=== PATIENT | male | born 1975 | race Caucasian/White ===

== ENCOUNTER 2017-01-03 00:22 | Emergency (ER) | payer SELFPAY ==
[~2017-01-03] VITALS: Ht 182.9 cm; Wt 97.9 kg
[~2017-01-03 00:22] MED LIST: HYDR-5688 PO; PRLSR20 PO
[2017-01-03 00:33] VITALS: TEMP 36.6; Ht 182.9 cm; Wt 97.9 kg
[2017-01-03] MEDS ORDERED: METHYLPREDNISOLONE 125 MG VIAL IV STA (01:05)
[2017-01-03] MEDS ORDERED: KETOROLAC TROMETHAMINE 30 MG/ML VIAL IV STA (01:05)
[2017-01-03 01:15] LABS: BASO % 0.4 %; BASO ABS # 0.03 K/uL (0-0.2); COMPLETE YES; EOS % 4.4 %; IG% 0.3 %; LYMPH % 26.5 %; LYMPH ABS # 2.05 K/uL (1.2-3.4); MEAN CELL VOLUME 96.2 fL (80-100); MEAN CORPUSCULAR HEMOGLOBIN 34.5 pg (25-34); MEAN CORPUSCULAR HGB CONC 35.8 g/dl (32-36); MEAN PLATELET VOLUME 10.6 fL (7.4-10.4); MONO % 5.8 %; NEUT % 62.6 %; PLATELET COUNT 194 K/uL (130-400); RED BLOOD COUNT 4.47 M/uL (4.7-6.1); WHITE BLOOD COUNT 7.75 K/uL (4.8-10.8)
[2017-01-03] MEDS ORDERED: SODIUM CHLORIDE 0.9% 1000ML 1,000 ML IV ONE (01:15)
[2017-01-03 01:23] LABS: BUN/CREATININE RATIO 11.5 (10-20); POTASSIUM 3.8 mmol/L (3.5-5.1)
[2017-01-03 01:26] LABS: ALB/GLOB RATIO 1.2 (0.9-2)
[2017-01-03] MEDS ORDERED: DICL75TA2 PO (02:31)
[2017-01-03] MEDS ORDERED: CYCL10TA6 PO (02:31)
[2017-01-03] MEDS ORDERED: METH4PAK PO (02:31)
[2017-01-03 02:33] VITALS: BP 124/72; PULSE 96; O2SAT 96
--- NOTE | 2017-01-03 06:12 | EMERGENCY ROOM VISIT NOTE ---
History First contact with patient: 00:54 Chief Complaint: SHOULDER PAIN Stated Complaint: SEVERE PAIN LT SHOULDER TO POINT OF TEARS,ANXIETY History of Present Illness The patient is a 41 year old male who presents to the Emergency Room with complaints of severe left shoulder pain worsening over the past few months. The patient does not recall a distinct injury or trauma to explain his symptoms. He states that his pain is worse than normal tonight and nonradiating. She was not able to sleep tonight, prompting him to come to the ER. 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 The patient states range of motion worsens his discomfort. He does not have numbness or paresthesias. No chest pain or shortness of breath. Additionally, the patient reports a history of anxiety and that is exacerbated with his left shoulder pain. He is not taking anything [id number] for either his shoulder pain or his anxiety. He rates his discomfort a 9/10. Review of Systems More than 10 systems were reviewed and otherwise negative with the exception of history of present illness. Past Medical/Surgical History Medical Problems: (1) No Known Active Medical Problems Family History Cancer Diabetes mellitus Heart disease Social History Smoking Status: Current Every Day Smoker Alcohol Use: none Drug Use: heroin, other Marital Status: single Occupation Status: employed Current/Historical Medications Scheduled Cyclobenzaprine Hcl (Flexeril), 10 MG PO TID Diclofenac Sodium (Voltaren), 75 MG PO BID Methylprednisolone (Medrol Dosepak), 1 PKT PO DIRECTED Scheduled PRN Omeprazole (Prilosec), 20 MG PO DAILY PRN for Heartburn Allergies Coded Allergies: Penicillins (Verified Allergy, Unknown, 01/03/17) Physical Exam Vital Signs Date Time Temp Pulse Resp B/P Pulse Ox O2 Delivery O2 Flow Rate FiO2 01/03/17 02:33 96 20 124/72 96 Room Air 01/03/17 00:33 36.6 95 24 134/77 96 Room Air Pain Rating (0-10): 8.0 Physical Exam VITALS: Vitals are noted on the nurse's note and reviewed by myself. Vital signs stable. GENERAL: Well-developed, well-nourished, white male, who is mildly anxious HEAD: Normocephalic atraumatic. NECK: Supple without nuchal rigidity. No lymphadenopathy. No thyromegaly. Cervical spine is nontender. HEART: Regular rate and rhythm without murmurs gallops or rubs. LUNGS: Clear to auscultation bilaterally without wheezes, rales or rhonchi. No retractions or accessory muscle use. MUSCULOSKELETAL: No muscle atrophy, erythema, or edema noted. Tenderness is appreciated over the superior and inferior left scapula. No gross deformity noted. No clavicular tenderness. The patient is able to abduct at the left shoulder. Patient refuses elevation of his hand above his head. Neurovascular status is intact distal extremity. NEURO: Patient was alert and oriented to person place and time. CN II through XII grossly intact. Deep tendon reflexes 2+ throughout. Medical Decision & Procedures Laboratory Results 01/03/17 00:49 Red Blood Count 4.47, Mean Corpuscular Volume 96.2, Mean Corpuscular Hemoglobin 34.5, Mean Corpuscular Hemoglobin Concent 35.8, Mean Platelet Volume 10.6, Neutrophils (%) (Auto) 62.6, Lymphocytes (%) (Auto) 26.5, Monocytes (%) (Auto) 5.8, Eosinophils (%) (Auto) 4.4, Basophils (%) (Auto) 0.4, Neutrophils # (Auto) 4.86, Lymphocytes # (Auto) 2.05, Monocytes # (Auto) 0.45, Eosinophils # (Auto) 0.34, Basophils # (Auto) 0.03 01/03/17 00:49 Test 01/03/17 00:49 01/03/17 01:17 White Blood Count 7.75 K/uL (4.8-10.8) Red Blood Count 4.47 M/uL (4.7-6.1) Hemoglobin 15.4 g/dL (14.0-18.0) Hematocrit 43.0 % (42-52) Mean Corpuscular Volume 96.2 fL (80-100) Mean Corpuscular Hemoglobin 34.5 pg (25-34) Mean Corpuscular Hemoglobin Concent 35.8 g/dl (32-36) Platelet Count 194 K/uL (130-400) Mean Platelet Volume 10.6 fL (7.4-10.4) Neutrophils (%) (Auto) 62.6 % Lymphocytes (%) (Auto) 26.5 % Monocytes (%) (Auto) 5.8 % Eosinophils (%) (Auto) 4.4 % Basophils (%) (Auto) 0.4 % Neutrophils # (Auto) 4.86 K/uL (1.4-6.5) Lymphocytes # (Auto) 2.05 K/uL (1.2-3.4) Monocytes # (Auto) 0.45 K/uL (0.11-0.59) Eosinophils # (Auto) 0.34 K/uL (0-0.5) Basophils # (Auto) 0.03 K/uL (0-0.2) RDW Standard Deviation 45.3 fL (36.4-46.3) RDW Coefficient of Variation 13.1 % (11.5-14.5) Immature Granulocyte % (Auto) 0.3 % Immature Granulocyte # (Auto) 0.02 K/uL (0.00-0.02) Anion Gap 5.0 mmol/L (3-11) Est Creatinine Clear Calc Drug Dose 115.5 ml/min Estimated GFR () 106.4 Estimated GFR (Non- 91.8 BUN/Creatinine Ratio 11.5 (10-20) Calcium Level 9.0 mg/dl (8.5-10.1) Total Bilirubin 0.5 mg/dl (0.2-1) Aspartate Amino Transf (AST/SGOT) 16 U/L (15-37) Alanine Aminotransferase (ALT/SGPT) 34 U/L (12-78) Alkaline Phosphatase 76 U/L (45-117) Total Protein 7.2 gm/dl (6.4-8.2) Albumin 3.9 gm/dl (3.4-5.0) Globulin 3.3 gm/dl (2.5-4.0) Albumin/Globulin Ratio 1.2 (0.9-2) Lipase 421 U/L (73-393) Ethyl Alcohol mg/dL < 3.0 mg/dl (0-3) Medications Administered Medications (Trade) Dose Ordered Sig/Donavan Route Start Time Stop Time Status Last Admin Dose Admin Ketorolac Tromethamine (Toradol Inj) 30 mg NOW STAT IV 01/03/17 01:05 01/03/17 01:07 DC 01/03/17 01:27 30 MG Methylprednisolone Sodium Succinate 125 mg 125 mg NOW STAT IV 01/03/17 01:05 01/03/17 01:07 DC 01/03/17 01:27 125 MG Sodium Chloride (Nss 1000ml) 1,000 ml @ 999 mls/hr Q1H1M ONCE IV 01/03/17 01:15 01/03/17 02:15 DC 01/03/17 01:27 999 MLS/HR ED Course Physical exam and history were performed. Nursing notes and EMR were reviewed. Patient appears to have left shoulder pain worsening over the past several months. The patient does not recall a distinct injury or trauma. IV access was established and labs were obtained. EKG was normal sinus rhythm without ST elevation. X-ray was performed. The patient was medicated as above. The patient's blood work does not show significantly elevated white blood cell count, anemia, bandemia, or significant electrolyte imbalance. Troponin 1 is negative. Lipase and transaminases are nondiagnostic. X-ray does not show significant acute finding per my interpretation with radiology report pending. Overall the patient appears stable for discharge home. His symptoms best correlate with a musculoskeletal etiology. He has reproducible tenderness on palpation and with range of motion. I do not suspect cardiac or pulmonary source. The patient will be placed in an arm sling and given a course of diclofenac, Flexeril, and steroids. He'll be given information to follow with orthopedics, and was asked to contact them in the morning to arrange appropriate care. The patient did request medication for his anxiety, however he is not chronically on anxiety medication. I do not feel comfortable initiating anxiety medication from the emergency department. The patient will need to discuss this with his primary care physician. The patient was otherwise invited back to the ER with any new, worsening, or concerning symptoms The chart was completed utilizing [employer] Voice Recognition Software. Grammatical errors, random word insertions, pronoun errors, and incomplete sentences are an occasional consequence of this system due to software limitations, ambient noise, and hardware issues. Any formal questions or concerns about the content, text, or information contained within the body of this dictation should be directly addressed to the provider for clarification. . Medical Decision Differential diagnosis includes, but is not limited to: Sprain, strain, fracture , dislocation, subluxation, contusion, or cardiopulmonary event, rotator cuff injury, and others Impression Primary Impression: Left shoulder pain Departure Information Dispostion Home / Self-Care Condition GOOD Prescriptions Methylprednisolone (MEDROL DOSEPAK) 4 Mg Scott 1 PKT PO DIRECTED, #1 PKT Prov: Bertin James PA-C 01/03/17 Cyclobenzaprine Hcl (FLEXERIL) 10 Mg Tab 10 MG PO TID for 7 Days, #21 TAB Prov: Bertin James PA-C 01/03/17 Diclofenac Sodium (VOLTAREN) 75 Mg Tab 75 MG PO BID for 10 Days, #20 TAB Prov: Bertin James PA-C 01/03/17 Referrals Catracho Chau M.D. Forms HOME CARE DOCUMENTATION FORM, IMPORTANT VISIT INFORMATION Patient Instructions My [facility] Additional Instructions You were seen and evaluated today on an emergency basis only. This is not a substitute for, or an effort to provide, complete comprehensive medical care. It is not possible to recognize and treat all injuries or illnesses in a single emergency department visit. For this reason it is recommended that you followup with [facility] , Dr. Chau's office, this week for ongoing care and evaluation. Call in the morning to make your appointment. Take diclofenac 75 mg twice daily as needed for pain. Take this medication with food. Do not take additional medications such as Advil or Aleve while taking this medication. You may take 1000 mg Tylenol every 8 hours. Take a Medrol Dosepak as prescribed. Flexeril 1 tablet up to 3 times a day as needed for muscle spasms. No driving, working, or alcohol use with Flexeril. Wear your arm sling for comfort. You are welcome to return to the emergency department anytime with new, worsening, or concerning symptoms.
--- NOTE | 2017-01-03 07:26 | DIAGNOSTIC IMAGING REPORT ---
LEFT SHOULDER 3 VIEWS CLINICAL HISTORY: Left shoulder pain. No reported history of trauma. FINDINGS: 3 views of left shoulder are correlated with left humeral radiographs dated 06/25/2016. The skeletal structures are well mineralized. No fracture or dislocation is seen. Minimal productive degenerative change is identified at the acromioclavicular joint. Mild arthritic change and sclerosis is present in the greater tuberosity of the humeral head. The glenohumeral articulation is preserved. The overlying soft tissues are within normal limits. The imaged left upper lobe lung parenchyma appears clear. IMPRESSION: No acute bony abnormality is seen in the left shoulder. Electronically signed by: Timothy Hamm M.D. 01/03/2017 7:24 AM Dictated Date/Time: 01/03/2017 7:23 AM
== END 2017-01-03 02:46 | disposition home or self-care (01) ==
LOC: C.EDB 00:24 → C.EDA 02:46
DX: M25.512 Pain in left shoulder (principal); F17.200 Nicotine dependence, unspecified, uncomplicated

== ENCOUNTER 2017-10-04 20:38 | Emergency (ER) | payer OTHER ==
[~2017-10-04] VITALS: Ht 180.3 cm; Wt 96.4 kg
[~2017-10-04 20:38] MED LIST changes: -HYDR-5688 PO
[2017-10-04 20:46] VITALS: TEMP 36.7; Ht 180.3 cm; Wt 96.4 kg
[2017-10-04] MEDS ORDERED: PROPARACAINE HCL 0.5% OP SOLN 15 ML BTL OP STA (20:51)
[2017-10-04] MEDS ORDERED: OXYCODONE/ACETAMINOPHEN 5-325 TAB PO STA (21:11)
[2017-10-04] MEDS ORDERED: IBUPROFEN 600 MG TAB PO STA (21:11)
[2017-10-04] MEDS ORDERED: SULF800T23 PO (21:12)
[2017-10-04] MEDS ORDERED: CLIN150C PO (21:12)
[2017-10-04] MEDS ORDERED: IBUP-1428 PO (21:12)
[2017-10-04] MEDS ORDERED: IBUP-1450 PO (21:12)
[2017-10-04] MEDS ORDERED: CIPROFLOXACIN HCL 0.3% OP SOLN 2.5 ML BTL OP ONE (21:15)
[2017-10-04] MEDS ORDERED: OXYCODONE IR HOME PACK PO ONE (21:15)
[2017-10-04 21:26] VITALS: BP 128/71; PULSE 87; O2SAT 96
--- NOTE | 2017-10-05 15:52 | EMERGENCY ROOM VISIT NOTE ---
ED Visit Note First contact with patient: 20:51 CHIEF COMPLAINT: Eye pain HISTORY OF PRESENT ILLNESS: This 42-year-old incarcerated male patient presents to the emergency department complaining of pain in the right eye after being poked in the eye while playing basketball just prior to arrival. There has been a constant moderate pain and irritation, redness and tearing in the eye. There is a mild blurring of vision at times and light bothers the eye. The vision has been decreased over all. The patient does not wear contacts. The patient rates the pain as sharp and 8/10. The patient has not had previous injuries to this eye. Tetanus shot is reportedly up to date. REVIEW OF SYSTEMS: A 6 system review of systems was completed with positives and pertinent negatives listed in the HPI. ALLERGIES: Penicillin MEDICATIONS: See EMR PMH: See EMR SOCIAL HISTORY: Incarcerated PHYSICAL EXAM: Vital Signs: Reviewed Nurse's notes, vital signs stable. Visual acuity was unable to be performed. GENERAL: This is a male, in no acute distress, but who is uncomfortable from the eye problem. Well-developed well- nourished. EYES: The pupils are equal round and reactive to light and accommodation. EOMs are full and without tenderness. There is discharge of clear tears from the right eye which is injected. There is no foreign body visible under the eyelid even after lid eversion. Funduscopic exam reveals no hemorrhages, papilledema, or other abnormalities. No foreign body was seen embedded in the cornea under slit lamp exam. The cornea was clear and no hyphema was seen. Fluorescein uptake was observed with ultraviolet light significant for a corneal abrasion at 5:00. EMERGENCY DEPARTMENT COURSE: Physical exam and history were performed. Nursing notes and EMR were reviewed. The patient appears to have suffered a contusion/abrasion to his right eye while playing basketball today. He does have an abrasion on exam. His tonometry readings were normal. The patient was given pain medication here in the department. He was started on Ciloxan eyedrops. He is to follow with the [facility] for further care and management. He was otherwise invited back to the ER with any new, worsening, or concerning symptoms. Problem List Medical Problems: (1) No Known Active Medical Problems Status: Chronic Current/Historical Medications Scheduled Clindamycin Hcl (Cleocin), 150 MG PO TID Ibuprofen (Motrin), 800 MG PO BID Sulfa/Trimethoprim (Bactrim Ds 800MG/160MG), 1 TAB PO BID Scheduled PRN Ibuprofen (Motrin), 600 MG PO TID PRN for Pain Allergies Coded Allergies: Penicillins (Verified Allergy, Unknown, 10/04/17) Vital Signs Date Time Temp Pulse Resp B/P (MAP) Pulse Ox O2 Delivery O2 Flow Rate FiO2 10/04/17 21:26 87 20 128/71 96 10/04/17 20:46 36.7 60 18 119/76 95 Room Air Medications Administered Medications (Trade) Dose Ordered Sig/Donavan Route Start Time Stop Time Status Last Admin Dose Admin Oxycodone/ Acetaminophen (Percocet 5-325mg Tab) 2 tab NOW STAT PO 10/04/17 21:11 10/04/17 21:13 DC 10/04/17 21:22 2 TAB Ibuprofen (Motrin Tab) 600 mg NOW STAT PO 10/04/17 21:11 10/04/17 21:13 DC 10/04/17 21:21 600 MG Oxycodone HCl (Roxicodone Immediate Rel 5MG Home Pack) 1 homepack UD ONCE PO 10/04/17 21:15 10/04/17 21:16 DC 10/04/17 21:21 1 HOMEPACK Ciprofloxacin HCl (Ciprofloxacin 0.3% Op Soln) 2 drops NOW ONCE OP 10/04/17 21:15 10/04/17 21:16 DC 10/04/17 21:21 2 DROPS Departure Information Impression Primary Impression: Injury of conjunctiva and corneal abrasion of right eye withou... Dispostion Home / Self-Care Condition FAIR Forms HOME CARE DOCUMENTATION FORM, IMPORTANT VISIT INFORMATION Patient Instructions My [facility] Additional Instructions You were seen and evaluated today on an emergency basis only. This is not a substitute for, or an effort to provide, complete comprehensive medical care. It is not possible to recognize and treat all injuries or illnesses in a single emergency department visit. For this reason it is recommended that you followup with the [facility] tomorrow morning for recheck of your eye. For baseline pain relief you may alternate ibuprofen and acetaminophen every 4 hours for pain control. Take 600 mg ibuprofen (Advil) and then 4 hours later take 1000 mg acetaminophen (Tylenol). Do not take more than 3000 mg acetaminophen in a single day. Oxycodone (OxyIR) 5mg (homepack): Take ONE or TWO pills every SIX hours for breakthrough pain. Avoid alcohol, operating machinery or dangerous equipment, working on ladders or roofs, DRIVING, or situations where being under the influence may be dangerous. It is recommended to use an [id number] stool softener such as Colace, 100mg twice daily while taking this medication to avoid constipation. Use Ciloxan Eye Drops: Instill 1-2 drops into the conjunctival sac every 2 hours while awake for 2 days and 1-2 drops every 4 hours while awake for the next 5 days You are welcome to return to the emergency department anytime with new, worsening, or concerning symptoms.
== END 2017-10-04 21:28 ==
LOC: C.EDB 20:42 → C.EDD 21:28
DX: S05.01XA Injury of conjunctiva and corneal abrasion without foreign body, right eye, initial encounter (principal); W22.8XXA Striking against or struck by other objects, initial encounter; Y93.67 Activity, basketball; Y92.149 Unspecified place in prison as the place of occurrence of the external cause; Y99.8 Other external cause status